=== PATIENT | female | born 1975 | race Two or more races ===

== ENCOUNTER 2024-05-27 05:12 | Day surgery (SDC) | payer OTHER ==
[2024-05-24 09:59] LABS: HEMATOCRIT 37.5 % (36.0-45.00); HEMOGLOBIN 12.7 g/dL (12.0-15.00); MEAN CELL VOLUME 86.4 fL (80.00-100.00); MEAN CORPUSCULAR HEMOGLOBIN 29.3 pg (27.00-32.0); MEAN CORPUSCULAR HGB CONC 33.9 g/dl (32.0-36.0); PLATELET COUNT 292 K/uL (150-450); RED BLOOD COUNT 4.34 M/uL (4.00-6.00); RED CELL DISTRIBUTION WIDTH 14.5 % (11.5-14.5)
[2024-05-24 10:04] LABS: PH,URINE 6.5 (5.0-8.0); URINE APPEARANCE Clear; URINE BILIRRUBIN Negative (NEGATIVE); URINE BLOOD Negative; URINE COLOR Yellow; URINE GLUCOSE Negative (NEGATIVE); URINE KETONE Negative (NEGATIVE); URINE LEUKOCYTE Negative; URINE NITRATE Negative; URINE PROTEIN Negative (NEGATIVE); URINE UROBILINOGEN 0.2 E.U./dl
[2024-05-24 10:05] LABS: URINE EPITHELIAL CELLS 2.1 uL (0.0-38.8)
[2024-05-24 10:08] LABS: URINE CAST 0.15 uL (0.0-1.40); URINE RBC 0.7 uL (0.0-20.8); URINE WBC 0.4 uL (0.0-23.2)
[2024-05-24 10:31] LABS: INR 1.06; PARTIAL THROMBOPLASTIN TIME 30.2 SECONDS (22.0-34.0); PROTHROMBIN TIME 11.5 SECONDS (9.0-11.5)
[2024-05-24 10:35] LABS: CALCIUM 9.1 mg/dL (8.5-10.1); CREATININE SERUM 0.77 mg/dL (0.55-1.02); GFR 79.67; POTASSIUM 3.92 mEq/L (3.5-5.1)
[2024-05-27] MEDS ORDERED: GENTAMICIN SULFATE 40 MG/ML VIAL ONE (06:19)
[2024-05-27] MEDS ORDERED: EPINEPHRINE HCL/PF 1 MG/ML AMPUL ONE (06:19)
[2024-05-27] MEDS ORDERED: CLINDAMYCIN PHOSPHATE 150 MG/ML (900mg) ONE ×2 (06:19→07:36)
[2024-05-27] MEDS ORDERED: CEFAZOLIN SODIUM 1,000 MG VIAL ONE (06:20)
[2024-05-27] MEDS ORDERED: POVIDONE-IODINE SCRUB 118 ML BOTT TOP ONE (06:20)
[2024-05-27] MEDS ORDERED: POVIDONE-IODINE 118 ML BOTT TOP ONE (06:20)
[2024-05-27] MEDS ORDERED: MORPHINE SULFATE 4 MG/ML VIAL IV PRN (10:45)
[2024-05-27] MEDS ORDERED: ONDANSETRON HCL 2 MG/ML VIAL IV PRN (10:45)
[2024-05-27] MEDS ORDERED: MORPHINE SULFATE 4 MG/ML VIAL IV ONE ×4 (11:40→12:55)
== END 2024-05-27 13:50 | disposition home or self-care (01) ==
LOC: CIR.AMB 05:12
PROVIDERS: ATTEND Plastic Surgery
DX: N64.81 Ptosis of breast (principal)